=== PATIENT | male | born 1990 | race Caucasian/White ===

== ENCOUNTER 2017-12-23 11:38 | Emergency (ER) | payer OTHER ==
[2017-12-23] MEDS: DIPHTH/TET/ACEL PERTUSS (ADULT) 0.5 ML VIAL IM* (12:03)
== END 2017-12-23 12:35 | disposition home or self-care (01) ==
LOC: FTE 11:38
DX: L03.012 Cellulitis of left finger (principal); Z23 Encounter for immunization
CPT/HCPCS: 90471; 90715; 99283-25